=== PATIENT | female | born 1960 | race Caucasian/White ===

== ENCOUNTER 2018-09-30 08:36 | Day surgery (SDC) | payer OTHER ==
[2018-09-29 15:26] VITALS: BMI 26.6
[2018-09-30] MEDS ORDERED: KETOROLAC TROMETHAMINE 30 MG/1 ML VIAL ONE (09:09)
[2018-09-30] MEDS ORDERED: ceFAZolin SODIUM 1 GM VIAL ONE (09:09)
[2018-09-30] MEDS ORDERED: MIDAZOLAM HCL 2 MG/2 ML SINGLE DOSE VIAL ONE (09:09)
[2018-09-30] MEDS ORDERED: ONDANSETRON 4 MG/2 ML VIAL ONE (09:09)
[2018-09-30] MEDS ORDERED: DEXAMETHASONE SOD PHOSPHATE 4 MG/1 ML VIAL ONE (09:09)
[2018-09-30] MEDS ORDERED: LIDOCAINE HCL/PF 2% SDV 5ML VIAL ONE (09:09)
[2018-09-30] MEDS ORDERED: BUPIVACAINE HCL 0.25% 125 MG/50 ML VIAL ONE (09:59)
[2018-09-30] MEDS ORDERED: LIDOCAINE HCL 2% (20ML MULTI-DOSE VIAL) NR ONE (09:59)
[2018-09-30] MEDS ORDERED: PROPOFOL 20 ML ONE (10:42)
[2018-09-30 12:53] VITALS: BP 106/62; PULSE 64; TEMP 98
--- NOTE | 2018-10-02 16:34 | OP ---
DATE OF OPERATION: 09/30/2018 PREOPERATIVE DIAGNOSIS: Right index finger extensor tendon laceration. POSTOPERATIVE DIAGNOSIS: Right index finger extensor tendon laceration. OPERATIVE PROCEDURE: Repair of right index finger extensor tendon with pinning of the distal interphalangeal joint. SURGEON: Alfonzo Porras MD PROPERTY DISPOSAL MANAGER: SHON Gonzalez ANESTHESIA: Local with sedation. COMPLICATIONS: None. ESTIMATED BLOOD LOSS: Minimal. INDICATION FOR PROCEDURE: The patient is a 58-year-old female with the above finding, indicated for operative treatment. Risks, benefits, alternatives were discussed with the patient at length. Proper informed consent was obtained. PROCEDURE: After preoperative identification of the patient, correct operative site, patient brought to the operating room and placed supine on the table with all prominences well padded. Sedation and local anesthesia were given. Right upper extremity was prepped and draped in the usual sterile fashion. Well-padded tourniquet was placed over the sterile prep. Esmarch bandage used to exsanguinate the upper extremity, and tourniquet was inflated to 150 mmHg. Patient's prior laceration was opened and extended proximally and distally in a midaxial fashion. The extensor tendon over the middle phalanx was found to be lacerated. It was mildly retracted by about 5 mm on each end. Interposing tissue was debrided and the tendon ends were able to be mobilized and approximated with the finger held in full extension. The distal interphalangeal joint was then pinned with a percutaneous K-wire, and x-rays confirmed proper alignment. This was done to take any pressure off the repair. The extensor tendon was then repaired with multiple 6-0 nylon sutures which held the tendon securely. Wound was repaired with 5-0 fast-absorbing plain gut suture. Sterile dressings were applied. Splint was placed. Patient was reversed from anesthesia and brought to the recovery room in stable condition. She tolerated the procedure well. Remberto Reinoso, the assistant store manager, was integral throughout the procedure. Procedure could not have been performed without a skilled operative assistant store manager. ALFONZO PORRAS M.D. ONELIA/[id number]
== END 2018-09-30 11:45 | disposition home or self-care (01) ==
LOC: FASU 08:36
PROVIDERS: ATTEND Orthopaedic Surgery Hand Surgery
PROC: 0LQ70ZZ Repair Right Hand Tendon, Open Approach (ICD-10-PCS; principal; 2018-09-30 10:28)
DX: S66.320A Laceration of extensor muscle, fascia and tendon of right index finger at wrist and hand level, initial encounter (principal); X58.XXXA Exposure to other specified factors, initial encounter; Y93.9 Activity, unspecified; Y92.9 Unspecified place or not applicable
CPT/HCPCS: 73140-TC-RT-FY

== ENCOUNTER 2018-10-02 15:10 | Emergency (ER) | payer OTHER ==
--- NOTE | 2018-10-02 15:15 | PDOC ---
History of Present Illness - General Chief Complaint: Pain Stated Complaint: POST OP RIGHT HAND DISCOMFORT Time Seen by Provider: 10/02/18 15:13 - History of Present Illness Initial Comments: 10/02/18 16:04 58yo female s/p finger pinning with Dr. Townsend on after finger laceration with a broken glass resulting in tendon tear. Pt presents with a dressing that was falling off and throbbing pain in her finger. Pt arrives with rohan dressing and finger splint. No drainage. No fevers. Taking tramadol, oxycodone, and motrin for pain at home. No paresthesias. Pshx: R hand pointer finger tendon repair all: nkda Past History - Past Medical History Allergies/Adverse Reactions: Allergies Allergy/AdvReac Type Severity Reaction Status Date / Time No Known Allergies Allergy Verified 10/02/18 15:11 Home Medications: Ambulatory Orders Multivitamin [One-Daily Multi-Vitamin] 1 each PO DAILY 09/29/18 Tramadol HCl 50 mg PO BID 09/29/18 Anemia: No Asthma: No Cancer: No Cardiac Disorders: No CVA: No COPD: No CHF: No Dementia: No Diabetes: No GI Disorders: No Disorders: No HTN: No Hypercholesterolemia: No Liver Disease: No Seizures: No Thyroid Disease: No - Surgical History Abdominal Surgery: Yes (Abdominoplasty 2013) Appendectomy: No Cardiac Surgery: No Cholecystectomy: No Lung Surgery: No Neurologic Surgery: No Orthopedic Surgery: Yes (Knee Arthroscopy right x2) - Suicide/Smoking/Psychosocial Hx Smoking History: Never smoked Hx Alcohol Use: No Drug/Substance Use Hx: No Substance Use Type: None Hx Substance Use Treatment: No Review of Systems - Review of Systems Able to Perform ROS?: Yes Is the patient limited [place] proficient: No Constitutional: No: Chills, Fever HEENTM: No: Nose Pain, Throat Pain Respiratory: No: Cough, Shortness of Breath Cardiac (ROS): No: Chest Pain ABD/GI: No: Diarrhea, Nausea, Vomiting, Abdominal cramping : No: Burning, Dysuria Musculoskeletal: Yes: Other (R finger pain) Integumentary: Yes: Other (surgery to R pointer finger). No: Bruising, Erythema , Rash Neurological: No: Headache, Numbness, Paresthesia All Other Systems: Reviewed and Negative *Physical Exam - Vital Signs 10/02/18 16:07 Selected Entries 10/02/18 15:10 Temperature 97.6 F Pulse Rate 61 Respiratory 18 Rate Blood Pressure 129/53 L Blood Pressure 78 Mean O2 Sat by Pulse 98 Oximetry (%) Weight 74.843 kg - Physical Exam General Appearance: Yes: Nourished, Appropriately Dressed. No: Apparent Distress HEENT: positive: EOMI, Normal Voice Neck: positive: Supple Respiratory/Chest: positive: Normal Breath Sounds Cardiovascular: positive: Regular Rhythm, Regular Rate, S1, S2 Gastrointestinal/Abdominal: positive: Soft. negative: Guarding, Rebound, Tenderness Musculoskeletal: positive: Normal Inspection. negative: CVA Tenderness Extremity: positive: Normal Capillary Refill, Other (R pointer finger with sutures in place to dorsum of the pointer finger, pin in place to distal finger , no drainage, no erythema, no warmth, brisk cap refill, sensation intact) Integumentary: positive: Other (suture site is clean and well approximated) Neurologic: positive: Fully Oriented, Alert, Normal Mood/Affect, Motor Strength 5/5, Other (ambulatory with a steady gait) Medical Decision Making - Medical Decision Making 10/02/18 15:52 a/p: 58yo female s/p finger pinning for tendon on friday with a dressing that was falling off and throbbing in the finger. -dressing removed, no drainage from the finger, pin in place, sutures in place, no bleeding -new dressing reapplied to the finger with a splint and gauze -pt placed in a sling -will follow up with dr. Townsend on friday for a post-op check -will give motrin for pain -pt taking tramadol and oxy for pain at home -stable for dc to home -call palced to dr. townsend to update him on change of dressing 10/02/18 16:[address] Townsend who agrees with the plan and will see the patient on friday at [facility] pt stable for dc to home *DC/Admit/Observation/Transfer Diagnosis at time of Disposition: Post-op pain - Discharge Dispostion Disposition: HOME Condition at time of disposition: Stable Decision to Admit order: No - Referrals Referrals: Dashawn Townsend MD [Staff Physician] - - Patient Instructions Printed Discharge Instructions: How to Care for a Surgical Wound Additional Instructions: Please keep the dressing clean and dry. Please keep the finger elevated. Please use the sling as discussed. Please keep the appointment with Dr. Townsend for Friday as discussed. Please take all medications as prescribed. Please do not remove this dressing until seen by Dr. Townsend. Please return to the ED with any further concerns or complaints. - Post Discharge Activity
[2018-10-02 15:25] VITALS: BP 129/53; PULSE 61; TEMP 97.6; BMI 26.6
== END 2018-10-02 16:05 | disposition home or self-care (01) ==
LOC: FER 15:10
DX: G89.18 Other acute postprocedural pain (principal)
CPT/HCPCS: 99283-25